=== PATIENT | male | born 1940 | race Caucasian/White ===

== ENCOUNTER → 2021-10-09 | Outpatient (CLI) | payer MEDICARE, OTHER ==
[~2021-10-09] MED LIST: CATHETER FLUSH 10 ML SYR IV PRN; HOLD METFORMIN - RECEIVED CONTRAST 20 ML VIAL IV SCH; IOHEXOL 350 MG/ML 100 ML (OMNIPAQUE 350) VIAL IV ONE; NS 100 ML (IVPB) BAG IV ONE
[2021-10-09 08:39] LABS: CREATININE SERUM 1.18 MG/DL (0.60-1.30)
--- NOTE | 2021-10-09 14:44 | Diagnostic Imaging Report ---
PROCEDURE: CT neck soft tissue with contrast. TECHNIQUE: Multiple contiguous axial images were obtained through the neck after the administration of contrast. Auto Exposure Controls were utilized during the CT exam to meet ALARA standards for radiation dose reduction. INDICATION: Right-sided vocal cord cancer. Hoarseness. COMPARISON: PET/CT performed concurrently. FINDINGS: The true and false vocal cords are symmetric without mass lesion. There is no abnormal soft tissue attenuation within the para glottic space on either side. No abnormal thickening of the epiglottis or pharyngeal epiglottic folds. No mass at the base of the tongue. Airway remains patent. No cervical lymphadenopathy. Thyroid is normal. Dense atherosclerotic plaquing is present in the proximal internal carotid arteries on both sides. No hydrocephalus withIN the visualized aspects of brain. Orbits unremarkable. Paranasal sinuses are clear. Lung apices show emphysema but are otherwise clear. IMPRESSION: 1. No appreciable mass within the larynx. 2. No cervical lymphadenopathy to suggest regional metastatic disease. Dictated by: Dictated on workstation # [id number]
--- NOTE | 2021-10-09 15:09 | Diagnostic Imaging Report ---
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 TECHNIQUE: The serum blood glucose level at the time of injection was 111 mg/dL. The patient was administered 12.8 mCi of F-18 FDG intravenously in the right forearm and PET imaging was performed from the top of the skull to the mid thighs. A noncontrast CT was also performed for attenuation correction and anatomic correlation. COMPARISON: No prior studies are available for comparison. FINDINGS: There is symmetric activity throughout the brain. The soft tissues of the neck are unremarkable. Specifically, the larynx is unremarkable apart from low level activity within the vocal cords with an SUV value of approximately 3.6. No definite hypermetabolic lymph nodes in the neck are identified to suggest metastatic disease. The pulmonary parenchyma, mediastinum, and zbigniew are unremarkable for hypermetabolism. The abdomen and pelvis demonstrate physiologic activity throughout the GI and tracts. There appears to be a right renal cyst. IMPRESSION: There is some low-level activity in the right vocal cord. No other suspicious regions of hypermetabolism are identified. No definite findings to suggest metastatic disease are detected. Dictated by: Dictated on workstation # [id number]
== END ==
LOC: RAD 09:00
PROVIDERS: ATTEND Otolaryngology Otolaryngology/Facial Plastic Surgery
DX: C32.0 Malignant neoplasm of glottis (principal)
CPT/HCPCS: 70491; 78815; 82565; 84520; A9552; 36415

== ENCOUNTER 2021-10-17 09:30 | Outpatient (RCR) | payer MEDICARE, OTHER | END 2021-10-22 | disposition home or self-care (01) | LOC: ONC 09:30 | PROVIDERS: ATTEND Radiology Radiation Oncology | DX: Z51.0 Encounter for antineoplastic radiation therapy (principal); C32.0 Malignant neoplasm of glottis | CPT/HCPCS: 77290; 77334; 99204 ==

== ENCOUNTER → 2021-11-19 | Outpatient (RCR) | payer MEDICARE, OTHER | END | disposition home or self-care (01) | LOC: ONC 10-23 14:03 | PROVIDERS: ATTEND Radiology Radiation Oncology | DX: Z51.0 Encounter for antineoplastic radiation therapy (principal); C32.0 Malignant neoplasm of glottis | CPT/HCPCS: 77280; 77295; 77300; 77334; 77336; 77417 ==

== ENCOUNTER 2021-12-07 12:43 | Outpatient (RCR) | payer MEDICARE, OTHER | END 2021-12-20 | disposition home or self-care (01) | LOC: ONC 12:43 | PROVIDERS: ATTEND Radiology Radiation Oncology | DX: Z51.0 Encounter for antineoplastic radiation therapy (principal); C32.0 Malignant neoplasm of glottis | CPT/HCPCS: 77336; 77412; 77417; G0463; 77280; 77307; 77334 ==

== ENCOUNTER 2022-01-17 10:09 | Outpatient (RCR) | payer MEDICARE, OTHER | END 2022-01-19 | LOC: ONC 10:09 | PROVIDERS: ATTEND Radiology Radiation Oncology | DX: C32.0 Malignant neoplasm of glottis (principal) | CPT/HCPCS: 99213 ==

== ENCOUNTER 2022-05-30 09:32 | Outpatient (RCR) | payer MEDICARE, OTHER | END 2022-06-21 | disposition home or self-care (01) | LOC: ONC 09:32 | PROVIDERS: ATTEND Radiology Radiation Oncology | DX: C32.0 Malignant neoplasm of glottis (principal) | CPT/HCPCS: 99212 ==

== ENCOUNTER 2022-07-02 05:48 | Outpatient (CLI) | payer MEDICARE, OTHER ==
[~2022-07-02] VITALS: Ht 175.2 cm; Wt 90.9 kg
[2022-07-02] MEDS ORDERED: ASPI-999 PO (15:18)
[2022-07-02] MEDS ORDERED: TERA1CAP3 PO (15:18)
[2022-07-02] MEDS ORDERED: AMLO-250 PO (15:18)
[2022-07-02] MEDS ORDERED: LISI40TA9 PO (15:18)
[2022-07-02] MEDS ORDERED: CHOL100048 PO (15:18)
[2022-07-02] MEDS ORDERED: PRAV20TA3 PO (15:18)
== END 2022-07-02 15:37 | disposition home or self-care (01) ==
LOC: PREOP 05:48
PROVIDERS: ATTEND Otolaryngology Otolaryngology/Facial Plastic Surgery
DX: Z01.818 Encounter for other preprocedural examination (principal)

== ENCOUNTER → 2022-07-02 | Outpatient (CLI) | payer MEDICARE, OTHER ==
[~2022-07-02] MED LIST changes: +AMLO-250 PO; +ASPI-999 PO; +CHOL100048 PO; +LISI40TA9 PO; +PRAV20TA3 PO; +TERA1CAP3 PO
[2022-07-02 11:56] LABS: CREATININE SERUM 1.16 MG/DL (0.60-1.30)
--- NOTE | 2022-07-02 20:16 | Diagnostic Imaging Report ---
PROCEDURE: CT neck soft tissue with contrast. TECHNIQUE: Multiple contiguous axial images were obtained through the neck after the administration of contrast. Auto Exposure Controls were utilized during the CT exam to meet ALARA standards for radiation dose reduction. INDICATION: History of a vocal cord tumor removed, now complaining of throat pain and hoarseness. COMPARISON: Exam is compared with a neck CT performed 10/09/2021. FINDINGS: There is new marked edema, nodularity, thickening, and swelling of the right greater than left false and true vocal cords narrowing the airway. It is unclear if this is progressive regional neoplasm or if there has been interval radiation which may account for the edema and swelling. The cricoid and tracheal cartilage appeared intact. The hyoid is intact. Airway below the cricoarytenoid joints is widely patent. Thoracic inlet is unremarkable. There are no enlarged, morphologically distorted, or suspicious appearing cervical lymph nodes. This patient has severe carotid atherosclerotic vascular disease likely of hemodynamically significance. No suspicious bony finding. IMPRESSION: 1. Interval development of extensive laryngeal edema and airway narrowing. Correlate for any interval radiation to differentiate from a progressive tumor. No cervical lymphadenopathy, and no suspicious bone lesion. 2. Severe carotid atherosclerosis is likely hemodynamically significant at the proximal ICAs. Dictated by: Dictated on workstation # [id number]
== END ==
LOC: RAD 11:05
PROVIDERS: ATTEND Otolaryngology Otolaryngology/Facial Plastic Surgery
DX: I65.29 Occlusion and stenosis of unspecified carotid artery (principal); R49.0 Dysphonia; R07.0 Pain in throat; Z85.21 Personal history of malignant neoplasm of larynx
CPT/HCPCS: 36415; 70491; 82565; 84520

== ENCOUNTER 2022-07-04 06:35 | Day surgery (SDC) | payer MEDICARE, OTHER ==
[~2022-07-04] VITALS: Ht 175 cm; Wt 90.9 kg
[2022-07-04] VITALS (10 sets, daily range): BP systolic 146–174; BP diastolic 65–84
[~2022-07-04 06:35] MED LIST changes: -CATHETER FLUSH 10 ML SYR IV PRN; -HOLD METFORMIN - RECEIVED CONTRAST 20 ML VIAL IV SCH; -IOHEXOL 350 MG/ML 100 ML (OMNIPAQUE 350) VIAL IV ONE; -NS 100 ML (IVPB) BAG IV ONE
[2022-07-04 07:28] LABS: BASOPHILS # (AUTO) 0.1 10^3/uL (0.0-0.1); BASOPHILS % (AUTO) 1 % (0-10); EOSINOPHILS # (AUTO) 0.3 10^3/uL (0.0-0.3); EOSINOPHILS % (AUTO) 3 % (0-10); HEMATOCRIT 37 % (40-54); HEMOGLOBIN 12.1 g/dL (13.3-17.7); LYMPHOCYTES # (AUTO) 1.2 10^3/uL (1.0-4.0); LYMPHOCYTES % (AUTO) 13 % (12-44); MEAN CORPUSCULAR HEMOGLOBIN 30 pg (25-34); MEAN CORPUSCULAR HGB CONC 33 g/dL (32-36); MEAN CORPUSCULAR VOLUME 91 fL (80-99); MEAN PLATELET VOLUME 9.9 fL (9.0-12.2); MONOCYTES # (AUTO) 0.9 10^3/uL (0.0-1.0); MONOCYTES % (AUTO) 10 % (0-12); NEUTROPHILS # (AUTO) 6.3 10^3/uL (1.8-7.8); NEUTROPHILS % (AUTO) 73 % (42-75); PLATELET COUNT 210 10^3/uL (130-400); WHITE BLOOD COUNT 8.7 10^3/uL (4.3-11.0)
[2022-07-04] MEDS: LACTATED RINGERS 1,000 ML IV PRN ×2 (07:29→10:49)
[2022-07-04 07:40] LABS: CALCIUM 9.7 MG/DL (8.5-10.1); CREATININE SERUM 1.05 MG/DL (0.60-1.30); POTASSIUM 4.3 MMOL/L (3.6-5.0)
[2022-07-04] MEDS ORDERED: LIDOCAINE PF 2% 5 ML (XYLOCAINE) VIAL ONE (09:19)
[2022-07-04] MEDS ORDERED: proPOfol 200 MG/20 ML (DIPRIVAN) VIAL IV ONE (09:19)
[2022-07-04] MEDS ORDERED: ROCURONIUM 10 MG/ML 5 ML SYRINGE IV ONE (09:19)
[2022-07-04] MEDS ORDERED: fentaNYL INJ 100 MCG/2 ML AMP ONE (09:19)
[2022-07-04] MEDS ORDERED: ONDANSETRON 4 MG/2 ML (SDV) Z0FRAN ONE (09:19)
[2022-07-04] MEDS ORDERED: LIDOCAINE/EPI 2% 1:200,00 (XYLOCAINE) 10 ML VIAL ONE (09:59)
[2022-07-04] MEDS ORDERED: SUGAMMADEX 500 MG/5 ML VIAL (BRIDION) IV ONE (10:56)
[2022-07-04] MEDS ORDERED: SEVOFLURANE (ULTANE) 15 ML INHAL SOLN ONE (11:00)
[2022-07-04] MEDS ORDERED: HYDROmorphone 2 MG/ML VIAL (DILAUDID) IV ONE (11:15)
[2022-07-04] MEDS ORDERED: ONDANSETRON 4 MG/2 ML (SDV) Z0FRAN IVP PRN (11:15)
[2022-07-04] MEDS ORDERED: HYDROmorphone 2 MG/ML VIAL (DILAUDID) ONE (11:17)
--- NOTE | 2022-07-04 13:24 | Anesthesia-General Post-Op ---
General Patient Condition Mental Status/LOC: Same as Preop Cardiovascular: Satisfactory Nausea/Vomiting: Absent Respiratory: Satisfactory Pain: Controlled Complications: Absent Post Op Complications Complications None Follow Up Care/Instructions Patient Instructions None needed. Anesthesia/Patient Condition Patient Condition Patient is doing well, no complaints, stable vital signs, no apparent adverse anesthesia problems. No complications reported per nursing. D/C home per [facility] [place] Criteria: Yes SARAH TAVAREZ CRNA Jul 04, 2022 13:24
== END 2022-07-04 12:27 | disposition home or self-care (01) ==
LOC: SDC 06:35
PROVIDERS: ATTEND Otolaryngology Otolaryngology/Facial Plastic Surgery
DX: C32.9 Malignant neoplasm of larynx, unspecified (principal)
CPT/HCPCS: 36415; 80048; 85025; 87081; 88305; 88342; 93005

== ENCOUNTER 2022-09-17 10:28 | Outpatient (RCR) | payer MEDICARE, OTHER | END 2022-09-21 | disposition home or self-care (01) | LOC: ONC 10:28 | PROVIDERS: ATTEND Internal Medicine Hematology & Oncology | DX: C32.9 Malignant neoplasm of larynx, unspecified (principal) | CPT/HCPCS: 99204 ==